=== PATIENT | male | born 1955 | race Caucasian/White ===

== ENCOUNTER 2020-02-06 13:01 | Outpatient (CLI) | payer MEDICARE, SELFPAY ==
--- NOTE | 2020-02-06 13:04 | CT_ITS ---
WS: [id number] LDCT LUNG CANCER SCREENING TECHNIQUE: Noncontrast CT of the chest with coronal and sagittal reformatted images. CLINICAL INFORMATION: NICOTINE DEPENDENCE, CIGARETTES COMPARISON: None. DLP: 75.59 mGy.cm DIvol: 2.[address] scans at [facility] use at least one of these dose optimization techniques: automat ed exposure control; mA and/or kV adjustment per patient size (includes targeted exams where dose is matched to clinical indication); or iterative reconstruction. FINDINGS: Moderate chronic emphysematous changes. No acute pulmonary infiltrates. No suspicious pulmonary paren chymal opacities. No consolidation or pleural fluid. Aortic calcification. No mediastinal or hilar ly mphadenopathy. No axillary lymphadenopathy. Adrenal glands are normal. Small esophageal hiatal hernia. CT/CT lung screening [id number] IMPRESSION: LUNG-RADS: 1-Negative FOLLOW UP: 12 Month: Continue annual screening with LDCT
== END 2020-02-06 13:02 | disposition home or self-care (01) ==
LOC: CT 13:02
PROVIDERS: PCP Family Medicine; Visit Provider Family Medicine
DX: Z12.2 Encounter for screening for malignant neoplasm of respiratory organs (principal); F17.210 Nicotine dependence, cigarettes, uncomplicated; K44.9 Diaphragmatic hernia without obstruction or gangrene
CPT/HCPCS: G0297

== ENCOUNTER 2020-09-30 15:29 | Outpatient (CLI) | payer MEDICARE, SELFPAY ==
--- NOTE | 2020-09-30 15:45 | USCV_ITS ---
KristiAvelina santana Age: 65 Gender: M : 1955 Exam Date: 09/30/2020 15:18 Ordering Phys: Ervin Lai MD Technologist: Susan Roldan Exam Location: [facility] [place] Indication: claudication RIGHT LEFT Pressure (mmHg) Waveform Pressure (mmHg) Waveform 109.00 BASIN OPERATOR 122.00 120.00 DPA 122.00 0.99 Ankle/Brachial Index 1.01 84.00 Pre-Exercise Toe Pressure 80.00 0.94 Pre-Exercise Toe/Brachial Index 0.66 FINDINGS Normal resting ABIs bilaterally Minimally diminished resting TBI on the left side Normal resting TBI on the right side CONCLUSIONS Possible mild peripheral artery disease involving the distal vessels on the left side. No significant arterial obstruction on the right side. Dr Carly Lance MD [facility] (Electronically Signed) Final Date: 30 September 2020 18:15 S
== END 2020-09-30 15:30 | disposition home or self-care (01) ==
LOC: US 15:31
PROVIDERS: PCP Family Medicine; Visit Provider Family Medicine
DX: I73.9 Peripheral vascular disease, unspecified (principal)
CPT/HCPCS: 93922

== ENCOUNTER 2021-01-28 15:37 | Emergency (ER) | payer MEDICARE, SELFPAY ==
[2021-01-28 15:54] VITALS: BP 130/88; PULSE 95; RESP 18; TEMP 36.2; O2SAT 94; BMI 23.9
--- NOTE | 2021-01-28 15:58 | ECG_ITS ---
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 Measurements Intervals [place] Rate: 94 P: -75 CO: 117 QRS: -86 QRSD: 100 T: 81 QT: 349 QTc: 439 Interpretive Statements JUNCTIONAL RHYTHM LEFT AXIS DEVIATION [QRS AXIS < -30] INCOMPLETE RIGHT BUNDLE BRANCH BLOCK [90+ ms QRS DURATION, TERMINAL R IN V1/V2, 40+ ms S IN I/aVL/V4/V5/V6] ANTEROSEPTAL MYOCARDIAL INFARCTION , OF INDETERMINATE AGE [40+ ms Q WAVE IN V1-V4] No previous ECG available for comparison Electronically Signed On 01-29-2021 8:52:15 CDT by Eva Calloway M.D. [email or web address] [id number]
--- NOTE | 2021-01-28 17:31 | ED_ITS ---
HPI - SOB/Dyspnea General: Chief Complaint: Shortness of Breath/Dyspnea Stated Complaint: diff breathing Time Seen by Provider: 01/28/21 17:31 History of Present Illness: HPI Narrative: Mr. Mays is a 65-year-old gentleman with significant past medical history of COPD and chronic hypoxic respiratory failure with 2 L at baseline who presents emergency department due to shortness of breath. Symptom onset was gradual approximately 3 days ago. He endorses increased shortness of breath which is worse with exertion. He additionally has productive cough. No fevers. No other signs of systemic illness. He has tried home medications and inhalers with only minimal relief. At this point intensity is moderate to severe. He does report feeling similar with prior COPD exacerbations. No other new symptoms, exacerbating, or relieving factors identified. Review of Systems General: Reports: 10 or more systems reviewed and unremarkable except in HPI and below Physical Exam Narrative: EXAM NARRATIVE: GENERAL/CONSTITUTIONAL - well-appearing. No acute distress. Eyes - PERRL, no conjunctival injection ENMT - Atraumatic external nose and ears. Moist mucous membranes NECK - supple. trachea midline CARDIOVASCULAR - regular rate and rhythm. No significant peripheral edema RESPIRATORY -diminished to auscultation bilaterally. Mildly increased respiratory effort. ABDOMEN/GI - Nontender/Nondistended. MSK - Extremities without obvious deformity or tenderness to palpation SKIN - Warm, Dry NEURO - alert and appropriately oriented. Moves all extremities equally. PSYCH - Appropriate mood and affect Course ED course: - Patient was seen and evaluated by me at bedside - Patient placed on cardiac monitors, IV access obtained - Initial evaluation notable for increased respiratory effort consistent with COPD exacerbation. -Symptom treatment ordered - Labs notable for mild leukocytosis. No significant metabolic abnormality. Procalcitonin negative. Troponin negative with greater than 6 hours from symptom onset - Imaging notable for no lobar consolidation - Upon serial reexamination after treatment the patient was markedly improved - Based on patient history, evaluation, labs, and imaging as interpreted the most likely cause of the patient's condition is acute exacerbation of COPD - The results of ED evaluation were discussed with the patient including prescriptions and/or symptomatic cares (if applicable) including appropriate and responsible use, followup plan, and return precautions. The patient verbalized understanding and felt safe for discharge. - Patient discharged in satisfactory condition. Vital Signs: Vital signs: Vital Signs Temperature 97.2 F L 01/28/21 15:54 Pulse Rate 83 10/29/21 19:48 Respiratory Rate 18 01/28/21 19:48 Blood Pressure 123/82 01/28/21 19:48 Pulse Oximetry 93 01/28/21 19:48 MDM - SOB/Dyspnea Medical Records: Attestation: I reviewed the patient's medical records. Lab Data: Attestation: I reviewed the patient's lab results. Labs: Lab Results 01/28/21 01/28/21 01/28/21 18:33 18:33 18:33 WBC 12.8 10^3/uL H 10 ^3/uL (4.0-10.0) RBC 4.79 10^6/uL 10^6 /uL (4.1-5.3) Hgb 16.0 g/dL g/dL (11.7-16.6) Hct 48.5 % % (42.0-52.0) MCV 101.3 fl H fl (80-94) MCH 33.4 pg pg (28.0-34.0) MCHC 33.0 g/dL g/dL (30.0-36.0) RDW 12.2 % % (12.1-15.1) Plt Count 218 10^3/cmm 10^3 /cmm (130-400) MPV 10.1 fL fL (7.4-10.4) Neut % (Auto) 57.7 % % Lymph % (Auto) 17.6 % % King % (Auto) 8.0 % % Eos % (Auto) 15.3 % % Baso % (Auto) 0.9 % % Neut # (Auto) 7.37 10^3/uL 10^3 /uL (1.8-7.7) Lymph # (Auto) 2.3 10^3/uL 10^3/ uL (0.8-4.8) King # (Auto) 1.0 10^3/uL H 10^ 3/uL (0.2-0.9) Eos # (Auto) 2.0 10^3/uL H 10^ 3/uL (0.0-0.8) Baso # (Auto) 0.1 10^3/uL 10^3/ uL (0.0-0.1) Nucleated RBC % (a uto) 0 % % Nucleated RBCs # 0.0 /100WBC /100W BC Sodium 137 mmol/L mmol/L (136-145) Potassium 4.0 mmol/L mmol/L (3.5-5.1) Chloride 100 mmol/L mmol/L (98-107) Carbon Dioxide 25 mmol/L mmol/L (22-29) Anion Gap 16.0 (5-19) BUN 8 mg/dL mg/dL (8-23) Creatinine 0.8 mg/dL mg/dL (0.7-1.2) GFR Calculation 96.4 mL/min mL/mi n (90-130) Glucose 88 mg/dL mg/dL (65-115) Calculated Osmolal ity 282 mOsm/kg L mOs m/kg (285-295) Calcium 9.0 mg/dL mg/dL (8.5-10.5) Total Bilirubin 1.5 mg/dL H mg/dL (0.15-1.2) AST 21 U/L U/L (0-40) ALT 16 U/L U/L (0-41) Alkaline Phosphata se 121 IU/L IU/L (40-130) Troponin T Baselin e 11 ng/L ng/L (0-15) Total Protein 7.1 g/dL g/dL (6.6-8.7) Albumin 4.4 g/dL g/dL (3.5-5.2) Globulin 2.7 g/dL g/dL (1.3-4.6) Procalcitonin 0.07 ng/mL ng/mL (0-0.5) EKG Data^: EKG 1: Attestation: I personally reviewed and interpreted this EKG as follows: EKG Interpretation Date: 01/28/21 EKG interpretation time: 16:08 Interpretation: Twelve-lead EKG shows a regular rhythm at a rate of 94. CT interval 117, QRS duration 100, QTc 439. Left axis deviation. Interpretation: Sinus rhythm. Short CT interval without delta waves. Discharge Plan Discharge Patient Disposition: Home Clinical Impression: Acute exacerbation of chronic obstructive airways disease Condition: Stable Prescriptions: New prednisone 50 mg tablet 50 mg PO DAILY 5 Days RF: 0 albuterol sulfate 90 mcg/actuation HFA aerosol inhaler 2 inh inhalation Q6H Qty: 8.5 RF: 3 doxycycline hyclate 100 mg tablet 100 mg PO BID 10 Days Qty: 20 RF: 0 Discharge Orders: Discharge ED (Routine); Ordered 01/28/21 Ordered By: Kendall Gutierrez Referrals: Ervin Lai MD [Primary Care Provider] - Discharge Diet: Usual diet Discharge Activity: Resume usual activity Patient Instructions: COPD (Chronic Obstructive Pulmonary Disease) (ED) Activity Restrictions/Additional Instructions: Thank you for visiting the emergency department. You were seen and evaluated for shortness of breath. You likely have a exacerbation of your COPD. You will be given a prescription for steroids and antibiotics. Please use your inhaler as discussed. Please return to the emergency department for worsening symptoms, failure to improve, or anything else that you are concerned about and feel needs emergency department evaluation. Coding Level of Care Code ED Protection [employer] for Lyndsey Bernal
[2021-01-28 17:36] VITALS: BP 130/90; PULSE 90; O2SAT 94
--- NOTE | 2021-01-28 17:42 | XRR_ITS ---
PROCEDURE INFORMATION: Exam: XR Chest Exam date and time: 01/28/2021 5:42 PM Age: 65 years old Clinical indication: Cough and shortness of breath; Additional info: SOB TECHNIQUE: Imaging protocol: XR of the chest. Views: 1 view. COMPARISON: CR XR chest 2V* [id number] 12/10/2020 1:12 PM FINDINGS: Lungs: Small focus of subsegmental atelectasis versus mild scarring is seen in the lateral segment of the right middle lobe. The lungs are otherwise clear. Pleural spaces: Unremarkable. No pleural effusion. No pneumothorax. Heart/Mediastinum: Unremarkable. No cardiomegaly. Bones/joints: Unremarkable. XR/XR chest 1V portable [id number] IMPRESSION: No acute cardiopulmonary abnormality. Radiation Dose CTDIVOL = (mGy): DLP = (mGy-cm)
[2021-01-28 18:13] VITALS: PULSE 83; RESP 17; O2SAT 95
[2021-01-28 18:19] VITALS: PULSE 82
[2021-01-28 18:43] LABS: Basophils # 0.1 10^3/uL (0.0-0.1); Basophils % 0.9 %; Eosinophils % 15.3 %; Hematocrit 48.5 % (42.0-52.0); Lymphocytes # 2.3 10^3/uL (0.8-4.8); Lymphocytes % 17.6 %; Mean Corpuscular Hemoglobin 33.4 pg (28.0-34.0); Mean Corpuscular Volume 101.3 fl (80-94); Mean Platelet Volume 10.1 fL (7.4-10.4); Neutrophils # 7.37 10^3/uL (1.8-7.7); Neutrophils % 57.7 %; Nucleated Red Blood Cells % 0 %; Platelet Count 218 10^3/cmm (130-400); Red Blood Count 4.79 10^6/uL (4.1-5.3); Red Cell Distribution Width 12.2 % (12.1-15.1); White Blood Count 12.8 10^3/uL (4.0-10.0)
[2021-01-28 19:03] LABS: Alanine Aminotransferase 16 U/L (0-41); Albumin Level 4.4 g/dL (3.5-5.2); Alkaline Phosphatase 121 IU/L (40-130); Aspartate Amino Transferase 21 U/L (0-40); Blood Urea Nitrogen 8 mg/dL (8-23); Carbon Dioxide 25 mmol/L (22-29); Chloride 100 mmol/L (98-107); Globulin 2.7 g/dL (1.3-4.6); Glomerular Filtration Rate 96.4 mL/min (90-130); Glucose 88 mg/dL (65-115); Osmolality Calculated 282 mOsm/kg (285-295); Sodium 137 mmol/L (136-145); Total Bilirubin 1.5 mg/dL (0.15-1.2); Total Protein 7.1 g/dL (6.6-8.7)
[2021-01-28 19:04] VITALS: BP 112/77; PULSE 78; O2SAT 92
[2021-01-28 19:04] LABS: Troponin(5th) Baseline 11 ng/L (0-15)
[2021-01-28 19:10] LABS: Procalcitonin 0.07 ng/mL (0-0.5)
[2021-01-28 19:48] VITALS: BP 123/82; PULSE 83; RESP 18; O2SAT 93
[2021-01-28] MEDS: doxycycline 100 mg Tablet PO (19:48)
== END 2021-01-28 19:49 | disposition home or self-care (01) ==
PROVIDERS: Emergency Provider Emergency Medicine; PCP Family Medicine
DX: J44.1 Chronic obstructive pulmonary disease with (acute) exacerbation (principal)
CPT/HCPCS: 71045; 80053; 84145; 84484; 85025; 93005; 94640; 96374; 99284; J2930

== ENCOUNTER 2021-02-02 13:51 | Outpatient (CLI) | payer MEDICARE, SELFPAY ==
--- NOTE | 2021-02-02 13:58 | CT_ITS ---
WS: [id number] LDCT LUNG CANCER SCREENING TECHNIQUE: Noncontrast CT of the chest with coronal and sagittal reformatted images. CLINICAL INFORMATION: NICOTINE DEPENDENCE,CIGARETTES COMPARISON: CT chest February 06, 2020 DLP: 59.73 mGy.cm DIvol: 1.[address] scans at [facility] use at least one of these dose optimization techniques: automat ed exposure control; mA and/or kV adjustment per patient size (includes targeted exams where dose is matched to clinical indication); or iterative reconstruction. FINDINGS: Moderate chronic emphysematous changes. No acute pulmonary infiltrates. No new or suspicious pulmonar y parenchymal opacities. Slight subsegmental atelectasis left lower lobe. Right lower lateral rib fra cture appears new from previous. Right posterior lateral ninth rib fracture with evidence of some solis pierre formation. Subsegmental atelectasis right lower lobe. Mild thoracic curve. Aortic calcification. No mediastinal or hilar lymphadenopathy. No axillary lymph adenopathy. Adrenal glands are normal. Small esophageal hiatal hernia. CT/CT lung screening [id number] IMPRESSION: LUNG-RADS: 1-Negative FOLLOW UP: 12 Month: Continue annual screening with LDCT
== END 2021-02-02 13:52 | disposition home or self-care (01) ==
LOC: RAD 13:55
PROVIDERS: PCP Family Medicine; Visit Provider Family Medicine
DX: Z12.2 Encounter for screening for malignant neoplasm of respiratory organs (principal); F17.210 Nicotine dependence, cigarettes, uncomplicated; I70.0 Atherosclerosis of aorta; K44.9 Diaphragmatic hernia without obstruction or gangrene
CPT/HCPCS: 71271

== ENCOUNTER 2022-02-20 08:47 | Outpatient (CLI) | payer MEDICARE, MEDICAID, SELFPAY ==
--- NOTE | 2022-02-20 08:53 | CT_ITS ---
WS: [id number] LDCT LUNG CANCER SCREENING HISTORY: NICOTINE DEPENDENCE,CIGARETTES TECHNIQUE: Axial imaging performed from the apices to 1 cm below the costophrenic angles. Coronal and sagittal reformats are submitted with axial MIP series. All CT scans at [facility] use at least one of these dose optimization techniques: automated exposure control; mA and/or kV adjustment per patient size (includes targeted exams where dose is matched to clinical indication); or iterativ e reconstruction. DLP: 85.11 mGy.cm DIvol: Mean CTDIvol: 1.60 (mGy) COMPARISON: 02/02/2021 Diagnostic quality: Satisfactory Lung Nodules: No new or enlarging nodules. Bilateral lower lobe bronchial wall thickening. Increasing opacification and consolidation within segmental branches of the RIGHT lower lobe bronchial tree. Mi ld atelectatic changes at the RIGHT costophrenic angle. Lungs: Hyperexpansion and emphysema. Heart: Normal size heart. No pericardial effusion. Other findings: Moderate atherosclerosis aorta. Small mediastinal and hilar lymph nodes. No pulmonary artery enlargement. Atherosclerosis continues into the suprarenal aorta. Normal adrenal glands. CT/CT lung screening [id number] IMPRESSION: LUNG-RADS: 4A-Probably Suspicious FOLLOW UP: 3 Month LDCT OTHER FINDINGS (S MODIFIER): None. [address] follow-up recommended to reevaluate the bronchial wall thickening an d endobronchial soft tissue bronchial RIGHT lower lobe. Bronchoscopy also may b e of benefit.
== END 2022-02-20 08:48 | disposition home or self-care (01) ==
PROVIDERS: PCP Family Medicine; Visit Provider Family Medicine
DX: Z12.2 Encounter for screening for malignant neoplasm of respiratory organs (principal); F17.210 Nicotine dependence, cigarettes, uncomplicated
CPT/HCPCS: 71271

== ENCOUNTER 2022-04-08 09:40 | Outpatient (CLI) | payer MEDICARE, MEDICAID, SELFPAY ==
--- NOTE | 2022-04-08 | PETR_ITS ---
PROCEDURE INFORMATION: Exam: PET/CT Skull Base to Mid-thigh Exam date and time: 04/08/2022 10:29 AM Clinical indication: Abnormal findings in the right lower lobe on CT chest lung screening on 02/20/2022. LABS AND CLINICAL REPORTS: Glucose: 104 mg/dl TECHNIQUE: Imaging protocol: Following at least four-hour fasting and following the injection of F-18-FDG, low dose CT images were obtained. Then, PET images were obtained. Attenuation corrected images were constructed using the CT scan. Fused images of PET and CT were reviewed. The standardized uptake values (SUV) reported below are maximum values within a region of interest, expressed in gm/ml. Exam includes orbital meatal line to mid-thigh. Time of imaging post radiopharmaceutical administration: 1 hour Injection site: No information provided Radiopharmaceutical: 12.76 mCi F-18 FDG, IV COMPARISON: CT chest lung screening 02/20/2022, 02/02/2021, 02/06/2020 FINDINGS: Brain: Visualized brain has normal physiologic uptake. Pharynx: No abnormal uptake. Larynx: Bilateral symmetric increased uptake is likely benign physiologic in nature. Lungs, pleura and trachea: Dependent patchy consolidations in the right lower lobe measure 3.4 SUV. There are not significantly larger in comparison with 02/02/2021. No pleural effusion. Heart: Normal physiologic uptake. There is no cardiomegaly. Mild coronary artery calcification is present. There is no pericardial effusion. Mediastinal space: No abnormal uptake. Liver: No abnormal uptake. Gallbladder and bile ducts: No abnormal uptake. No calcified gallstones. Pancreas: No abnormal uptake. Spleen: No abnormal uptake. No splenomegaly. Adrenal glands: No abnormal uptake. No nodules. Kidneys and ureters: Normal physiologic uptake. No hydronephrosis. Stomach and bowel: No abnormal uptake. No abnormal dilatation of the bowel. Diverticulosis of the left and right colon most extensive in the sigmoid colon. Intraperitoneal and retroperitoneal spaces: No abnormal uptake. No ascites. Bladder: Normal physiologic uptake. Reproductive: No abnormal uptake. The prostate is mildly enlarged. Vasculature: No abnormal uptake. Lymph nodes: No abnormal uptake. No lymphadenopathy in the head, neck, chest, abdomen, pelvis, and extremities. Bones/joints: No abnormal uptake in the visualized axial and appendicular skeleton. Soft tissues: No abnormal uptake in the visualized head, neck, chest, abdomen, pelvis, and extremities. PET[id number] IMPRESSION: Increased uptake of 3.4 SUV in non masslike dependent opacity in the right lower lobe is nonspecific. Based on lack of significant change in comparison with 02/02/2021 benign inflammatory process is favored over malignancy. No FDG avid lymphadenopathy in the chest, no abnormal FDG avid findings outside of the chest.
== END 2022-04-08 09:41 | disposition home or self-care (01) ==
LOC: RAD 04-10 05:49
PROVIDERS: PCP Family Medicine; Visit Provider Family Medicine
DX: R93.89 Abnormal findings on diagnostic imaging of other specified body structures (principal)
CPT/HCPCS: 78815; A9552

== ENCOUNTER → 2022-06-07 08:37 | Outpatient (BNVA) | payer MEDICARE, MEDICAID, SELFPAY | PROVIDERS: PCP Family Medicine; Visit Provider Internal Medicine Pulmonary Disease | DX: R91.8 Other nonspecific abnormal finding of lung field (principal); J44.9 Chronic obstructive pulmonary disease, unspecified; Z71.6 Tobacco abuse counseling; J45.909 Unspecified asthma, uncomplicated; F17.210 Nicotine dependence, cigarettes, uncomplicated | CPT/HCPCS: 99204 ==

== ENCOUNTER 2022-06-28 08:53 | Emergency (ER) | payer MEDICARE, MEDICAID, SELFPAY ==
[2022-06-28 09:00] VITALS: BP 165/94; PULSE 92; TEMP 36.4; O2SAT 95; BMI 25.1
--- NOTE | 2022-06-28 09:07 | CT_ITS ---
WS: [id number] CT HEAD TECHNIQUE: Noncontrast CT of the head obtained from the skullbase to the vertex. CLINICAL INFORMATION: fall/oral anticoagulants COMPARISON: None. DLP: 1418.[address] scans at [facility] use at least one of these dose optimization techniques: automated e xposure control; mA and/or kV adjustment per patient size (includes targeted exams where dose is matc hed to clinical indication); or iterative reconstruction. FINDINGS: No evidence of intracranial hemorrhage or mass effect. Ventricular system and basal cisterns are daniels nt. Mild small vessel changes with moderate parenchymal volume loss. No extra-axial fluid collections . No evidence of mass or mass effect. Vascular calcification. Paranasal sinuses and mastoid air cells are well aerated. .Normal visualized soft tissues. CT/CT head wo con* [id number] IMPRESSION: 1. No evidence of intracranial hemorrhage or mass effect. 2. Mild small vessel changes. Moderate parenchymal volume loss. 3. Vascular calcification. Mild mucosal thickening RIGHT mastoid tip. 4. No acute intracranial findings.
--- NOTE | 2022-06-28 09:08 | XR_ITS ---
WS: [id number] Exam: XR chest 1V portable [id number] Date/Time of Exam: 06/28/2022 9:11 AM Reason For Exam: dyspnea/cough Comparison 01/28/2021. The lungs are clear and fully inflated. Unremarkable cardiomediastinal silhouette. No pleural effusio ns. Recent appearing fracture of the distal left clavicle. Remaining bony structures are intact. XR/XR chest 1V portable [id number] IMPRESSION: 1. No acute cardiopulmonary process identified. 2. Recent appearing comminuted fracture of the distal left clavicle.
--- NOTE | 2022-06-28 09:09 | XR_ITS ---
WS: [id number] Exam: XR shoulder LT min 2V* [id number] Date/Time of Exam: 06/28/2022 9:11 AM Reason For Exam: fall/pain There is a comminuted fracture of the distal left clavicle. There is some overriding and slight infer ior displacement of the proximal fragment. Degenerative change at the AC joint. No other fractures of the shoulder are noted. XR/XR shoulder LT min 2V* [id number] IMPRESSION: 1. Comminuted distal clavicle fracture with minimal displacement. AC joint DJD.
--- NOTE | 2022-06-28 09:09 | CT_ITS ---
WS: [id number] CT CERVICAL TRAUMA TECHNIQUE: Noncontrast CT of the cervical spine with coronal and sagittal reformatted images. CLINICAL INFORMATION: fall COMPARISON: None. DLP: 1418.[address] scans at [facility] use at least one of these dose optimization techniques: automated e xposure control; mA and/or kV adjustment per patient size (includes targeted exams where dose is matc hed to clinical indication); or iterative reconstruction. FINDINGS: Straightening of the normal cervical lordosis. Interbody bony fusion C3-C4 or segmentation anomaly. S light anterolisthesis C4 on C5. Disc space narrowing worse at C5-C6. No high-grade central canal sten osis. Normal craniocervical junction. Normal C1-C2 articulation. Dens is normal in appearance. Normal occipital condyles. Normal C1 ring. No evidence of acute fracture or dislocation. Normal prevertebral soft tissues. Mastoids air cells are well aerated. CT/CT cervical spin wo con* [id number] IMPRESSION: No evidence of acute fracture or dislocation.
--- NOTE | 2022-06-28 09:10 | ECG_ITS ---
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 Measurements Intervals [place] Rate: 90 P: 75 ID: [id number] QRS: -79 QRSD: 97 T: 82 QT: 350 QTc: 430 Interpretive Statements SINUS RHYTHM LEFT AXIS DEVIATION [QRS AXIS < -30] PATTERN CONSISTENT WITH PULMONARY DISEASE SEPTAL MYOCARDIAL INFARCTION , PROBABLY OLD [40+ ms Q WAVE IN V1/V2] Diffuse nonspecific T wave changes INTERPRETATION BASED ON A DEFAULT AGE OF 40 YEARS Compared to ECG 01/28/2021 16:01:26 Junctional rhythm no longer present Incomplete right bundle-branch block no longer present Myocardial infarct finding still present Electronically Signed On 06-28-2022 23:52:39 CDT by Carly Lance M.D. [id number]
--- NOTE | 2022-06-28 09:13 | PC.NURSE ---
PT STATES HE FELL AT HOME IN THE KITCHEN WHILE TRYING TO GET A PIECE OF CAKE. PT STATES HE FELL ON HIS LEFT SIDE. PT HAS SOME LEFT SHOULDER PAIN ALONG WITH SKIN TEARS ON HIS LEFT HAND. PT STATES HE DID HIT HIS HEAD AND IS ON ELIQUIS. VERY SLIGHT RAISED AREA TO LEFT SIDE OF HEAD WITH SOME REDNESS OF THE SKIN.
[2022-06-28 09:22] LABS: Basophils # 0.1 10^3/uL (0.0-0.1); Basophils % 0.5 %; Eosinophils # 0.8 10^3/uL (0.0-0.8); Eosinophils % 5.4 %; Hematocrit 48.9 % (42.0-52.0); Hemoglobin 16.4 g/dL (11.7-16.6); Lymphocytes # 2.8 10^3/uL (0.8-4.8); Lymphocytes % 19.3 %; Mean Corpuscular HGB Conc 33.5 g/dL (30.0-36.0); Mean Corpuscular Hemoglobin 33.3 pg (28.0-34.0); Mean Corpuscular Volume 99.2 fl (80-94); Mean Platelet Volume 9.1 fL (7.4-10.4); Monocytes # 0.8 10^3/uL (0.2-0.9); Monocytes % 5.9 %; Neutrophils # 9.77 10^3/uL (1.8-7.7); Neutrophils % 68.2 %; Nucleated Red Blood Cells % 0 %; Platelet Count 257 10^3/cmm (130-400); Red Blood Count 4.93 10^6/uL (4.1-5.3); Red Cell Distribution Width 11.9 % (12.1-15.1); White Blood Count 14.3 10^3/uL (4.0-10.0)
[2022-06-28 09:41] LABS: Troponin(5th) Baseline 11 ng/L (0-15)
[2022-06-28 09:46] LABS: Alanine Aminotransferase 13 U/L (0-41); Albumin Level 4.4 g/dL (3.5-5.2); Alkaline Phosphatase 139 U/L (40-130); Anion Gap 17.8 (5-19); Aspartate Amino Transferase 17 U/L (0-40); Blood Urea Nitrogen 11 mg/dL (8-23); Calcium 9.3 mg/dL (8.5-10.5); Carbon Dioxide 25 mmol/L (22-29); Chloride 101 mmol/L (98-107); Creatinine Clr Calc Pharmacy 74.5023; Glomerular Filtration Rate 74.1 mL/min (90-130); Glucose 110 mg/dL (65-115); Osmolality Calculated 288 mOsm/kg (285-295); Sodium 139 mmol/L (136-145); Total Protein 7.4 g/dL (6.6-8.7)
[2022-06-28 09:47] LABS: Potassium 4.8 mmol/L (3.5-5.1)
[2022-06-28 10:10] VITALS: BP 140/88; PULSE 80; RESP 17; O2SAT 93
--- NOTE | 2022-06-28 10:14 | ED_ITS ---
HPI - Fall General: Chief Complaint: Fall Stated Complaint: fall/ left arm pain Time Seen by Provider: 06/28/22 08:59 Source: patient Mode of arrival: ambulatory History of Present Illness: 67-year-old male presents emergency room after a vasovagal episode precipitated by coughing at home last night. He fell and he fell he hit his left shoulder this happened around 7:00 last night. He is on an anticoagulant he has some abrasions on his left knuckles is complaining of left shoulder pain that is worse with palpation movement of the left arm and with inspiration. No further episodes since then. MD complaint: fall Fall from: standing Place fall occurred: home Loss of consciousness: Yes Prolonged down time: no Symptoms prior to fall: none Context: other (Vasovagal) Location of injury: head Location of injury - extremities: Left: shoulder and hand Associated symptoms-after fall: Denies abdominal pain, chest pain, confusion, difficulty walking, headache(s), hematuria, lightheadedness, neck pain, numbness, short of breath, vertigo or weakness Review of Systems Const: Denies: fever(s), chills, body aches, change in appetite, fatigue or malaise ENMT: Denies: throat pain, ear or mastoid pain, nasal discharge or nasal congestion Card: Denies: chest pain or lightheadedness Resp: Denies: dyspnea, productive cough or non-productive cough GI: Denies: abdominal pain : Denies: hematuria Musc: Denies: neck pain Skin/Breast: Denies: rash or pruritus Neuro: Denies: headache(s), difficulty walking, vertigo or confusion PFS ED PFSH: Medical History Asthma-COPD overlap syndrome Social History Smoking and tobacco status: current every day smoker cigarettes Packs smoked per day: 1 Years cigarettes smoked: 56 Physical Exam Const: COMMON NORMALS: no acute distress GENERAL APPEARANCE: cooperative and comfortable ORIENTATION/CONSCIOUSNESS: Yes awake, Yes oriented to person, Yes oriented to place and Yes oriented to time HENMT: COMMON NORMALS: normocephalic, atraumatic and hearing grossly normal bilaterally HEAD & SCALP: normocephalic and atraumatic Chest: OTHER: Pain with light palpation across left clavicle and distally no obvious crepitus or deformity on external exam Resp: COMMON NORMALS: normal respiratory effort, No retractions, No use of accessory muscles and clear to auscultation bilaterally AUSCULTATION: clear to auscultation bilaterally Cardio: COMMON NORMALS: regular rate, regular rhythm and No murmurs present (Cardio) RATE: regular rate RHYTHM: regular rhythm GI: COMMON NORMALS: Soft to palpation and No hepatosplenomegaly present AUSCULTATION: Yes normoactive bowel sounds PALPATION: Yes Soft to palpation, No Tenderness to palpation present (GI), No Guarding due to palpation present (GI) and Yes No hepatosplenomegaly present Extremity: COMMON NORMALS: normal to inspection, capillary refill normal, no clubbing, cyanosis or edema, no calf tenderness and no pedal edema Neuro: SENSORIUM/ORIENTATION: Yes oriented to person, Yes oriented to place and Yes oriented to time Skin: COMMON NORMALS: no rashes or lesions noted GENERAL SKIN EXAM: no rashes or lesions noted Course Vital Signs: Vital signs: Vital Signs Temperature 97.6 F 06/28/22 09:00 Pulse Rate 84 06/28/22 11:18 Respiratory Rate 16 06/28/22 11:18 Blood Pressure 166/93 06/28/22 10:40 Pulse Oximetry 90 06/28/22 11:18 Oxygen Delivery Me thod 06/28/22 09:00 MDM - Fall Medical Decision Making Labs imaging and EKG reviewed no acute ST changes. Distal clavicle comminuted fracture and. Will place patient in sling refer to Ortho discharge home. Suspect his initial reason for passing out was a vasovagal episode precipitated by his cough. Also put him on a course of steroids for his COPD. Medical Records I reviewed the patient's medical records. Lab Data I reviewed the patient's lab results. 06/28/22 09:14 06/28/22 09:[address] 06/28/22 09:07 IMPRESSION: 1. No evidence of intracranial hemorrhage or mass effect. 2. Mild small vessel changes. Moderate parenchymal volume loss. 3. Vascular calcification. Mild mucosal thickening RIGHT mastoid tip. 4. No acute intracranial findings. Chest X-Ray 06/28/22 09:08 IMPRESSION: 1. No acute cardiopulmonary process identified. 2. Recent appearing comminuted fracture of the distal left clavicle. Cervical Spine CT 06/28/22 09:09 IMPRESSION: No evidence of acute fracture or dislocation. Shoulder X-Ray 06/28/22 09:09 IMPRESSION: 1. Comminuted distal clavicle fracture with minimal displacement. AC joint DJD. Laboratory Results WBC 14.3 10^3/uL (4.0-10.0) H 06/28/22 09:14 RBC 4.93 10^6/uL (4.1-5.3) 06/28/22 09:14 Hgb 16.4 g/dL (11.7-16.6) 06/28/22 09:14 Hct 48.9 % (42.0-52.0) 06/28/22 09:14 MCV 99.2 fl (80-94) H 06/28/22 09:14 MCH 33.3 pg (28.0-34.0) 06/28/22 09:14 MCHC 33.5 g/dL (30.0-36.0) 06/28/22 09:14 RDW 11.9 % (12.1-15.1) L 06/28/22 09:14 Plt Count 257 10^3/cmm (130-400) 06/28/22 09:14 MPV 9.1 fL (7.4-10.4) 06/28/22 09:14 Neut % (Auto) 68.2 % 06/28/22 09:14 Lymph % (Auto) 19.3 % 06/28/22 09:14 [place] % (Auto) 5.9 % 06/28/22 09:14 Eos % (Auto) 5.4 % 06/28/22 09:14 Baso % (Auto) 0.5 % 06/28/22 09:14 Neut # (Auto) 9.77 10^3/uL (1.8-7.7) H 06/28/22 09:14 Lymph # (Auto) 2.8 10^3/uL (0.8-4.8) 06/28/22 09:14 [place] # (Auto) 0.8 10^3/uL (0.2-0.9) 06/28/22 09:14 Eos # (Auto) 0.8 10^3/uL (0.0-0.8) 06/28/22 09:14 Baso # (Auto) 0.1 10^3/uL (0.0-0.1) 06/28/22 09:14 Nucleated RBC % (auto) 0 % 06/28/22 09:14 Nucleated RBCs # 0.0 /100WBC 06/28/22 09:14 Sodium 139 mmol/L (136-145) 06/28/22 09:14 Potassium 4.8 mmol/L (3.5-5.1) 06/28/22 09:14 Chloride 101 mmol/L (98-107) 06/28/22 09:14 Carbon Dioxide 25 mmol/L (22-29) 06/28/22 09:14 Anion Gap 17.8 (5-19) 06/28/22 09:14 BUN 11 mg/dL (8-23) 06/28/22 09:14 Creatinine 1.0 mg/dL (0.7-1.2) 06/28/22 09:14 GFR Calculation 74.1 mL/min (90-130) L 06/28/22 09:14 Glucose 110 mg/dL (65-115) 06/28/22 09:14 Calculated Osmolality 288 mOsm/kg (285-295) 06/28/22 09:14 Calcium 9.3 mg/dL (8.5-10.5) 06/28/22 09:14 Total Bilirubin 1.0 mg/dL (0.15-1.2) 06/28/22 09:14 AST 17 U/L (0-40) 06/28/22 09:14 ALT 13 U/L (0-41) 06/28/22 09:14 Alkaline Phosphatase 139 U/L (40-130) H 06/28/22 09:14 Troponin T Baseline 11 ng/L (0-15) 06/28/22 09:14 Total Protein 7.4 g/dL (6.6-8.7) 06/28/22 09:14 Albumin 4.4 g/dL (3.5-5.2) 06/28/22 09:14 Globulin 3.0 g/dL (1.3-4.6) 06/28/22 09:14 Urine Color Yellow (Yellow) 06/28/22 10:09 Urine Appearance Clear (CLEAR) 06/28/22 10:09 Urine pH 5 (5-7) 06/28/22 10:09 Ur Specific [place] 1.025 (1.005-1.030) 06/28/22 10:09 Urine Protein Neg (Negative) 06/28/22 10:09 Urine Glucose (UA) Norm (Normal) 06/28/22 10:09 Urine Ketones Negative (Negative) 06/28/22 10:09 Urine Blood Neg (Negative) 06/28/22 10:09 Urine Nitrate Negative (Negative) 06/28/22 10:09 Urine Bilirubin Neg (Negative) 06/28/22 10:09 Urine Urobilinogen Norm mg/dL (Negative) 06/28/22 10:09 Ur Leukocyte Esterase Negative (Negative) 06/28/22 10:09 Discharge Plan Discharge Patient Disposition: Home Clinical Impression: Clavicle fracture, Syncope, vasovagal, Acute exacerbation of chronic obstructive pulmonary disease Condition: Stable Prescriptions: New hydrocodone-acetaminophen 5-325 mg tablet 1 tab PO Q6H PRN (Reason: pain) Qty: 20 0RF prednisone 20 mg tablet 20 mg PO TID Qty: 15 0RF Rx Instructions: 1 p.o. 3 times daily x3 days, 1 p.o. twice daily x2 days, 1 p.o. daily x2 days albuterol sulfate 90 mcg/actuation HFA aerosol inhaler 2 inh INHALATION Q4H PRN (Reason: shortness of breath or wheezing) Qty: 18 0RF No Action albuterol sulfate 90 mcg/actuation HFA aerosol inhaler 2 inh inhalation Q6H PRN (Reason: shortness of breath or wheezing) cetirizine [Zyrtec] 10 mg tablet 10 mg PO DAILY PRN Trelegy Ellipta 100-62.5-25 mcg blister with device 1 inh inhalation DAILY Eliquis 5 mg tablet 5 mg PO BID diltiazem HCl 240 mg capsule,extended release 24 hr 240 mg PO DAILY rosuvastatin 20 mg tablet 20 mg PO DAILY irbesartan 300 mg tablet 300 mg PO DAILY montelukast [Singulair] 10 mg tablet 10 mg PO DAILY Qty: 30 3RF Discharge Orders: Discharge ED (Routine); Ordered 06/28/22 Ordered By: Eugene Gar Referrals: Ervin Lai MD [Primary Care Provider] - Discharge Diet: Usual diet Discharge Activity: Increase activity as tolerated Patient Instructions: Opioid Safety, Pain Management Activity Restrictions/Additional Instructions: You are seen today after a vasovagal episode secondary to coughing. You do have a fractured clavicle should wear the arm sling and use the pain medications as needed. We also gave you a course of steroids for your COPD use albuterol regularly if you have any worsening or change symptoms return Coding Level of Care Code ED Flame Degreaser for Lyndsey Bernal
[2022-06-28 10:40] VITALS: BP 166/93; PULSE 83; RESP 18; O2SAT 93
--- NOTE | 2022-06-28 10:41 | PC.NURSE ---
PT PLACED ON CONTINUOUS, NIBP, SPO2, AND CM
[2022-06-28 10:47] LABS: Add Urine Microscopic? NO; Charge for UA Resulting for Rev
[2022-06-28 10:53] LABS: Bilirubin Urine Neg (Negative); Blood Urine Neg (Negative); Glucose Urine UA Norm (Normal); Ketones Urine Negative (Negative); Leukocyte Esterase Urine Negative (Negative); Nitrate Urine Negative (Negative); Protein Urine Neg (Negative); Specific Gravity, Urine 1.025 (1.005-1.030); Urine Appearance Clear (CLEAR); Urine Color Yellow (Yellow); Urobilinogen Urine Norm (Negative); pH Urine 5 (5-7)
[2022-06-28] MEDS: HYDROcodone-acetaminophen 5-325 mg Tablet 2 TAB PO (11:15)
[2022-06-28 11:18] VITALS: PULSE 84; RESP 16; O2SAT 90
== END 2022-06-28 11:19 | disposition home or self-care (01) ==
PROVIDERS: Emergency Provider Family Medicine; PCP Family Medicine
DX: S42.032A Displaced fracture of lateral end of left clavicle, initial encounter for closed fracture (principal); W18.39XA Other fall on same level, initial encounter; F17.210 Nicotine dependence, cigarettes, uncomplicated; R55 Syncope and collapse; J44.1 Chronic obstructive pulmonary disease with (acute) exacerbation; Z79.01 Long term (current) use of anticoagulants
CPT/HCPCS: 70450; 71045; 72125; 73030; 80053; 81003; 84484; 85025; 93005; 99285

== ENCOUNTER → 2022-09-11 08:44 | Outpatient (BNVA) | payer MEDICARE, MEDICAID, SELFPAY | PROVIDERS: PCP Family Medicine; Visit Provider Internal Medicine Pulmonary Disease | DX: R91.8 Other nonspecific abnormal finding of lung field (principal); J44.9 Chronic obstructive pulmonary disease, unspecified; Z71.6 Tobacco abuse counseling; F17.210 Nicotine dependence, cigarettes, uncomplicated; J45.909 Unspecified asthma, uncomplicated | CPT/HCPCS: 99214 ==

== ENCOUNTER 2022-09-13 10:16 | Outpatient (CLI) | payer MEDICARE, MEDICAID, SELFPAY ==
[2022-09-13 10:37] VITALS: PULSE 93; RESP 20; O2SAT 94
[2022-09-13] MEDS: albuterol 2.5 mg/3 mL Neb INHALATION (10:37)
[2022-09-13 10:41] VITALS: PULSE 89
== END 2022-09-13 10:17 | disposition home or self-care (01) ==
LOC: RT 10:18
PROVIDERS: PCP Family Medicine; Visit Provider Internal Medicine Pulmonary Disease
DX: R06.02 Shortness of breath (principal); J44.9 Chronic obstructive pulmonary disease, unspecified
CPT/HCPCS: 94060; 94618; 94726; 94729; J7613

== ENCOUNTER 2022-09-18 15:17 | Outpatient (CLI) | payer MEDICARE, MEDICAID, SELFPAY ==
[2022-09-13 11:19] LABS: Basophils # 0.1 10^3/uL (0.0-0.1); Basophils % 0.6 %; Eosinophils # 0.7 10^3/uL (0.0-0.8); Hematocrit 43.3 % (42.0-52.0); Hemoglobin 14.6 g/dL (11.7-16.6); Lymphocytes # 1.8 10^3/uL (0.8-4.8); Lymphocytes % 10.9 %; Mean Corpuscular HGB Conc 33.7 g/dL (30.0-36.0); Mean Corpuscular Hemoglobin 33.5 pg (28.0-34.0); Mean Corpuscular Volume 99.3 fl (80-94); Mean Platelet Volume 9.3 fL (7.4-10.4); Monocytes # 0.5 10^3/uL (0.2-0.9); Monocytes % 3.3 %; Neutrophils # 12.93 10^3/uL (1.8-7.7); Neutrophils % 80.5 %; Nucleated Red Blood Cells % 0 %; Platelet Count 240 10^3/cmm (130-400); Red Blood Count 4.36 10^6/uL (4.1-5.3); Red Cell Distribution Width 12.7 % (12.1-15.1); White Blood Count 16.1 10^3/uL (4.0-10.0)
[2022-09-15 17:34] LABS: Alternaria Alternata (M6) Ige <0.10 kU/L; Alternaria Class 0; Bermuda Class 0; Bermuda Grass (G2) Ige <0.10 kU/L; Cat Dander (E1) Ige <0.10 kU/L; Cat Dander Class 0; Common Ragweed (Short) (W1) Ig <0.10 kU/L; D. Farinae Class 0; Dermatophagoides Class 0; Dermatophagoides Farinae (D2) <0.10 kU/L; Dermatophagoides Pteronyssinus <0.10 kU/L; Dog Dander (E5) Ige <0.10 kU/L; Dog Dander Class 0; Elm (T8) Ige <0.10 kU/L; Elm Class 0; English Plantain (W9) Ige <0.10 kU/L; English Plantain Class 0; House Dust (Greer) (H1) Ige <0.10 kU/L; House Dust (Hollister- Stier) <0.10 kU/L; House Dust Class 0; Immunoglobulin E 455 kU/L (<OR=114); Johnson Grass (G10) Ige <0.10 kU/L; Johnson Grass Cl 0; June Grass Class 0; June Grass(Kentucky Blue) (G8) <0.10 kU/L; Lamb'S Quarters (Goose Foot) <0.10 kU/L; Lamb'S Quarters Class 0; Maple (Box Elder) (T1) Ige <0.10 kU/L; Maple Class 0; Meadow Fescue (G4) Ige <0.10 kU/L; Meadow Fescue Class 0; Mucor Racemosus Class 0; Oak (T7) Ige <0.10 kU/L; Oak Class 0; Orchard Grass (Cocksfoot) (G3) <0.10 kU/L; Penicillium Class 0; Penicillium Notatum (M1) Ige <0.10 kU/L; Perennial Rye Grass (G5) Ige <0.10 kU/L; Perennial Rye Grass Class 0; Ragweeed Class 0; Rough Marsh Elder (W16) Ige <0.10 kU/L; Rough Marsh Elder Class 0; Sweet Vernal Class 0; Sweet Vernal Grass (G1) Ige <0.10 kU/L; Timothy Grass (G6) Ige <0.10 kU/L; Timothy Grass Class 0
[2022-09-19 21:19] LABS: Aspergillus Fumigatus, Igg Ab, 7.8 mg/L (<=102)
== END 2022-09-18 15:18 | disposition home or self-care (01) ==
PROVIDERS: PCP Family Medicine; Visit Provider Internal Medicine Pulmonary Disease
DX: J44.9 Chronic obstructive pulmonary disease, unspecified (principal); R06.02 Shortness of breath
CPT/HCPCS: 36415; 82785; 85025; 86003

== ENCOUNTER 2022-09-22 08:58 | Oncology outpatient (recurring) (ONCR) | payer MEDICARE, MEDICAID, SELFPAY ==
[2022-09-22 09:15] VITALS: BP 144/85; PULSE 84; RESP 18; TEMP 36.7; O2SAT 96
[2022-09-22] MEDS: Benralizumab *no charge* 30 mg/ml syringe SUBCUT (09:46)
[2022-09-22 10:00] VITALS: BP 155/87; PULSE 83; RESP 16; TEMP 36.6; O2SAT 95
== END 2022-09-29 23:59 | disposition home or self-care (01) ==
LOC: ONCMED 08:59
PROVIDERS: PCP Family Medicine; Visit Provider Internal Medicine Pulmonary Disease
DX: J44.9 Chronic obstructive pulmonary disease, unspecified (principal); F17.210 Nicotine dependence, cigarettes, uncomplicated; Z79.899 Other long term (current) drug therapy
CPT/HCPCS: 96372

== ENCOUNTER → 2022-10-24 12:34 | Outpatient (BNVA) | payer MEDICARE, MEDICAID, SELFPAY | PROVIDERS: PCP Family Medicine; Visit Provider Internal Medicine Pulmonary Disease | DX: R91.8 Other nonspecific abnormal finding of lung field (principal); J44.9 Chronic obstructive pulmonary disease, unspecified; Z71.6 Tobacco abuse counseling; F17.210 Nicotine dependence, cigarettes, uncomplicated; I07.1 Rheumatic tricuspid insufficiency | CPT/HCPCS: 99214 ==

== ENCOUNTER 2023-01-05 12:27 | Outpatient (CLI) | payer MEDICARE, MEDICAID, SELFPAY ==
--- NOTE | 2023-01-05 12:36 | CT_ITS ---
WS: [id number] CT chest wo con [id number] HISTORY: lung nodules TECHNIQUE: Axial imaging performed through the thorax. Coronal and sagittal reformats are submitted. All CT scans at [facility] use at least one of these dose optimization techniques: automated exposure control; mA and/or kV adjustment per patient size (includes targeted exams where dose is mat ched to clinical indication); or iterative reconstruction. CONTRAST: None DLP: 416.28 mGy.cm COMPARISON: 02/20/2022 Lungs and central airway: Hyperexpansion and centrilobular emphysema. Mild progression of bronchial w all thickening and a small amount of fluid in the RIGHT lower lobe bronchial tree. There is very mild wall thickening and slight dilatation of the bronchial tree. Very minimal bronchial wall thickening in the LEFT lower lobe. No mass is identified. There is a small amount of debris in the proximal RIGH T lower lobe bronchus. Pleura: Normal. No pleural effusion. Heart and pericardium: Normal size heart with no pericardial effusion. Mediastinum and eboni: No mediastinum or hilar adenopathy. Vessels: Moderate atherosclerosis thoracic aorta. No aneurysm. There is very mild bulging of the cont our of the aortic just distal to the subclavian artery. This has been present on prior studies. Chest wall and lower neck: No soft tissue masses. Upper abdomen: Mild atherosclerosis suprarenal aorta. No adrenal mass. Osseous structures: No destructive process. IMPRESSION: 1. Mild progression of bronchial wall thickening and fluid in the RIGHT lower lobe. This is probably an area of developing bronchiectasis. There is no mass identified. 2. Moderate centrilobular emphysema.
== END 2023-01-05 12:28 | disposition home or self-care (01) ==
LOC: RAD 12:28
PROVIDERS: PCP Family Medicine; Visit Provider Family Medicine
DX: R91.1 Solitary pulmonary nodule (principal); J43.9 Emphysema, unspecified
CPT/HCPCS: 71250

== ENCOUNTER → 2023-04-26 13:20 | Outpatient (BNVA) | payer MEDICARE, MEDICAID, SELFPAY | PROVIDERS: PCP Family Medicine; Visit Provider Internal Medicine Pulmonary Disease | DX: J43.2 Centrilobular emphysema (principal); R91.8 Other nonspecific abnormal finding of lung field; Z71.6 Tobacco abuse counseling; Z72.0 Tobacco use; J82.83 Eosinophilic asthma | CPT/HCPCS: 99214 ==

== ENCOUNTER 2024-03-03 09:37 | Outpatient (CLI) | payer MEDICARE, SELFPAY ==
--- NOTE | 2024-03-03 09:59 | CT_ITS ---
WS: [id number] LDCT LUNG CANCER SCREENING TECHNIQUE: Noncontrast CT of the chest with coronal and sagittal reformatted images. CLINICAL INFORMATION: NICOTINE DEPENDENCE COMPARISON: CT lung screening [address] chest 01/05/2023 DLP: 70.61 mGy.cm DIvol: Mean CTDIvol: 1.40 (mGy) All CT scans at [facility] use at least one of these dose optimization techniques: automat ed exposure control; mA and/or kV adjustment per patient size (includes targeted exams where dose is matched to clinical indication); or iterative reconstruction. FINDINGS: Moderate chronic centrilobular emphysematous change. Previously described endobronchial opacities in the RIGHT lower lobe appears to have resolved compared to previous. No visualized mass or suspicious opacity in the RIGHT lower lobe. No other new suspicious pulmonary parenchymal opacities. Aortic calcification. Moderate atheromatous disease. Coronary calcification. No mediastinal or hilar lymphadenopathy. No axillary lymphadenopathy. Adrenal glands are normal. Tiny esophageal hiatal herni a. CT/CT lung screening [id number] IMPRESSION: LUNG-RADS: 2-Benign Appearance or Behavior FOLLOW UP: 12 Month: Continue annual screening with LDCT
== END 2024-03-03 09:38 | disposition home or self-care (01) ==
LOC: RAD 09:39
PROVIDERS: PCP Family Medicine; Visit Provider Family Medicine
DX: Z12.2 Encounter for screening for malignant neoplasm of respiratory organs (principal); F17.210 Nicotine dependence, cigarettes, uncomplicated; J43.2 Centrilobular emphysema; I70.0 Atherosclerosis of aorta; I25.84 Coronary atherosclerosis due to calcified coronary lesion
CPT/HCPCS: 71271

== ENCOUNTER → 2024-03-04 11:22 | Outpatient (BNVA) | payer MEDICARE, SELFPAY | PROVIDERS: PCP Family Medicine; Visit Provider Podiatrist Foot & Ankle Surgery | DX: B35.3 Tinea pedis (principal) | CPT/HCPCS: 99203 ==

== ENCOUNTER → 2024-03-19 13:49 | Outpatient (BNVA) | payer MEDICARE, SELFPAY | PROVIDERS: PCP Family Medicine; Visit Provider Podiatrist Foot & Ankle Surgery | DX: B35.3 Tinea pedis (principal) | CPT/HCPCS: 99213 ==

== ENCOUNTER → 2025-01-15 15:15 | Outpatient (BNVA) | payer MEDICARE, SELFPAY | PROVIDERS: PCP Family Medicine; Visit Provider Internal Medicine | DX: J44.89 Other specified chronic obstructive pulmonary disease (principal); Z99.81 Dependence on supplemental oxygen; Z71.6 Tobacco abuse counseling; F17.210 Nicotine dependence, cigarettes, uncomplicated; J44.9 Chronic obstructive pulmonary disease, unspecified | CPT/HCPCS: 99214; 99406; Q3014 ==